=== PATIENT | male | born 1935 | race Caucasian/White ===

== ENCOUNTER 2016-11-10 08:30 | Outpatient (RCR) | payer MEDICARE, BC | END 2016-11-16 15:32 | disposition home or self-care (01) | LOC: OT 08:30 | DX: M19.042 Primary osteoarthritis, left hand (principal); M19.041 Primary osteoarthritis, right hand ==

== ENCOUNTER 2016-11-26 06:37 | Emergency (ER) | payer MEDICARE, BC ==
[~2016-11-26] VITALS: Ht 177.8 cm; Wt 76.8 kg
[2016-11-26] MEDS ORDERED: DUTASTERIDE0.5 MG PO (06:49)
[2016-11-26] MEDS ORDERED: FLOMAX 0.40.4 MG/CAP (06:49)
[2016-11-26] MEDS ORDERED: PROTONIX TR40 M1 PO (11:40)
[2016-11-26 11:50] VITALS: BP 129/87
== END 2016-11-26 11:47 | disposition home or self-care (01) ==
LOC: ED 06:37
DX: K21.9 Gastro-esophageal reflux disease without esophagitis (principal); K44.9 Diaphragmatic hernia without obstruction or gangrene; R07.9 Chest pain, unspecified; R13.10 Dysphagia, unspecified
CPT/HCPCS: Q9967

== ENCOUNTER 2017-01-11 13:11 | Emergency (ER) | payer MEDICARE, BC ==
[~2017-01-11] VITALS: Ht 177.8 cm; Wt 90.9 kg
[~2017-01-11 13:11] MED LIST: DUTASTERIDE0.5 MG PO; FLOMAX 0.40.4 MG/CAP; PROTONIX TR40 M1 PO
[2017-01-11] MEDS ORDERED: LEVO-T200 MCG PO (13:28)
[2017-01-11 17:11] VITALS: BP 139/89
== END 2017-01-11 16:50 | disposition home or self-care (01) ==
LOC: ED 13:11
DX: R07.0 Pain in throat (principal); R09.89 Other specified symptoms and signs involving the circulatory and respiratory systems
CPT/HCPCS: J1610; Q9967

== ENCOUNTER 2017-03-04 09:30 | Outpatient (RCR) | payer MEDICARE, BC ==
[~2017-03-04 09:30] MED LIST changes: +LEVO-T200 MCG PO
== END 2017-03-04 10:30 | disposition home or self-care (01) ==
LOC: PT 09:30
DX: M25.512 Pain in left shoulder (principal); M19.012 Primary osteoarthritis, left shoulder

== ENCOUNTER 2017-08-02 09:30 | Outpatient (RCR) | payer MEDICARE, BC | END 2017-08-02 10:00 | disposition home or self-care (01) | LOC: PT 09:30 | DX: Z47.1 Aftercare following joint replacement surgery (principal); Z96.612 Presence of left artificial shoulder joint | CPT/HCPCS: G8985-GP ==

== ENCOUNTER 2019-02-06 15:48 | Outpatient (RCR) | payer MEDICARE, BC ==
[2019-02-01 16:30] VITALS: BP 140/73
[2019-02-02 16:05] VITALS: BP 134/81
[2019-02-03 16:06] VITALS: BP 154/84
[2019-02-04 15:57] VITALS: BP 158/98
[2019-02-05 15:46] VITALS: BP 152/88
[~2019-02-06] VITALS: Ht 175.3 cm; Wt 99.1 kg
[2019-02-06 16:09] VITALS: BP 158/73
[2019-02-18] MEDS ORDERED: CUBICIN 500MG500 MG IV (11:15)
== END 2019-05-02 | disposition still patient (30) ==
LOC: AMSURD
DX: T84.50XA Infection and inflammatory reaction due to unspecified internal joint prosthesis, initial encounter (principal)
CPT/HCPCS: J0878

== ENCOUNTER → 2019-02-06 | Outpatient (CLI) | payer MEDICARE, BC ==
[2019-02-05 15:46] VITALS: BP 152/88
[~2019-02-06] MED LIST changes: +AMOXICILLIN 50500 MG PO; +ASPIRIN 81M81 MG/TA2 PO; -FLOMAX 0.40.4 MG/CAP; +FLOMAX0.4 MG PO; +GOOD NEIGHBOR500 M2 PO; +SYNTHROID0.2 MG PO; +TRAMADOL 50 MG TAB PO
[2019-02-06 16:39] LABS: ALBUMIN 3.6 g/dL (3.4-4.8); HEMATOCRIT 34.1 % (42.0-52.0); HEMOGLOBIN 10.9 g/dL (13.5-18.0); MEAN PLATELET VOLUME 8.9 fl (7.4-10.4); POTASSIUM 3.9 mmol/L (3.5-5.1); RED BLOOD COUNT 3.48 M/mm3 (4.20-5.60); RED CELL DISTRIBUTION WIDTH 12.9 % (11.5-14.5); WHITE BLOOD COUNT 8.1 K/mm3 (4.8-10.8)
[2019-02-06 16:40] LABS: CALCIUM 8.9 mg/dL (8.3-10.5)
[2019-02-06 16:44] LABS: TOTAL BILIRUBIN 0.5 mg/dL (0.2-1.2)
== END ==
LOC: AMSURD 15:55
PROVIDERS: Family Medicine
DX: T84.50XA Infection and inflammatory reaction due to unspecified internal joint prosthesis, initial encounter (principal)

== ENCOUNTER → 2019-02-20 | Outpatient (CLI) | payer MEDICARE, BC ==
[2019-02-19 15:18] VITALS: BP 173/78
[~2019-02-20] MED LIST changes: +CUBICIN 500MG500 MG IV
[2019-02-20 15:59] LABS: HEMATOCRIT 29.6 % (42.0-52.0); HEMOGLOBIN 9.2 g/dL (13.5-18.0); MEAN PLATELET VOLUME 8.5 fl (7.4-10.4); RED BLOOD COUNT 3.06 M/mm3 (4.20-5.60); RED CELL DISTRIBUTION WIDTH 12.8 % (11.5-14.5); WHITE BLOOD COUNT 6.2 K/mm3 (4.8-10.8)
[2019-02-20 16:00] LABS: ALBUMIN 3.7 g/dL (3.4-4.8)
[2019-02-20 16:01] LABS: POTASSIUM 4.1 mmol/L (3.5-5.1)
[2019-02-20 16:02] LABS: CALCIUM 9.3 mg/dL (8.3-10.5)
[2019-02-20 16:03] LABS: TOTAL PROTEIN 6.9 g/dL (6.2-8.1)
[2019-02-20 16:05] LABS: TOTAL BILIRUBIN 0.5 mg/dL (0.2-1.2)
== END ==
LOC: LAB 15:13
PROVIDERS: Family Medicine
DX: T84.7XXA Infection and inflammatory reaction due to other internal orthopedic prosthetic devices, implants and grafts, initial encounter (principal)

== ENCOUNTER → 2019-02-27 | Outpatient (CLI) | payer MEDICARE, BC ==
[2019-02-26 15:20] VITALS: BP 125/62
[2019-02-27 15:31] LABS: HEMATOCRIT 30.8 % (42.0-52.0); HEMOGLOBIN 9.4 g/dL (13.5-18.0); MEAN PLATELET VOLUME 8.6 fl (7.4-10.4); RED BLOOD COUNT 3.25 M/mm3 (4.20-5.60); RED CELL DISTRIBUTION WIDTH 12.5 % (11.5-14.5); WHITE BLOOD COUNT 8.3 K/mm3 (4.8-10.8)
[2019-02-27 15:33] LABS: ALBUMIN 3.7 g/dL (3.4-4.8); POTASSIUM 3.9 mmol/L (3.5-5.1)
[2019-02-27 15:34] LABS: CALCIUM 9.2 mg/dL (8.3-10.5)
[2019-02-27 15:36] LABS: TOTAL PROTEIN 7.6 g/dL (6.2-8.1)
[2019-02-27 15:37] LABS: TOTAL BILIRUBIN 0.4 mg/dL (0.2-1.2)
== END ==
LOC: LAB 14:57
PROVIDERS: Family Medicine
DX: T84.7XXA Infection and inflammatory reaction due to other internal orthopedic prosthetic devices, implants and grafts, initial encounter (principal)

== ENCOUNTER → 2019-03-06 | Outpatient (CLI) | payer MEDICARE, BC ==
[2019-03-05 15:28] VITALS: BP 152/77
[2019-03-06 15:57] LABS: HEMATOCRIT 31.3 % (42.0-52.0); HEMOGLOBIN 9.7 g/dL (13.5-18.0); MEAN CELL VOLUME 93 fl (78-100); MEAN CORPUSCULAR HEMOGLOBIN 29 pg (27-31); MEAN CORPUSCULAR HGB CONC 31 g/dL (33-37); MEAN PLATELET VOLUME 8.4 fl (7.4-10.4); PLATELET COUNT 384 K/mm3 (130-400); RED BLOOD COUNT 3.38 M/mm3 (4.20-5.60); RED CELL DISTRIBUTION WIDTH 12.5 % (11.5-14.5); WHITE BLOOD COUNT 6.8 K/mm3 (4.8-10.8)
[2019-03-06 16:00] LABS: ALBUMIN 3.7 g/dL (3.4-4.8); POTASSIUM 3.9 mmol/L (3.5-5.1)
[2019-03-06 16:02] LABS: CALCIUM 9.2 mg/dL (8.3-10.5)
[2019-03-06 16:03] LABS: TOTAL PROTEIN 7.5 g/dL (6.2-8.1)
[2019-03-06 16:05] LABS: TOTAL BILIRUBIN 0.4 mg/dL (0.2-1.2)
[2019-03-06 17:33] LABS: LYMPHOCYTE 17 % (20-51); MONOCYTE 15 % (3-10); NEUTROPHILS 62 % (42-75)
== END ==
LOC: LAB 15:18
PROVIDERS: Internal Medicine Infectious Disease
DX: T84.7XXA Infection and inflammatory reaction due to other internal orthopedic prosthetic devices, implants and grafts, initial encounter (principal)

== ENCOUNTER → 2019-03-13 | Outpatient (CLI) | payer MEDICARE, BC ==
[2019-03-12 15:21] VITALS: BP 179/83
[2019-03-13 16:08] LABS: HEMATOCRIT 31.6 % (42.0-52.0); HEMOGLOBIN 9.7 g/dL (13.5-18.0); MEAN PLATELET VOLUME 8.9 fl (7.4-10.4); RED BLOOD COUNT 3.48 M/mm3 (4.20-5.60); RED CELL DISTRIBUTION WIDTH 12.4 % (11.5-14.5)
[2019-03-13 16:14] LABS: ALBUMIN 3.7 g/dL (3.4-4.8); POTASSIUM 4.2 mmol/L (3.5-5.1)
[2019-03-13 16:15] LABS: CALCIUM 9.3 mg/dL (8.3-10.5)
[2019-03-13 16:17] LABS: TOTAL PROTEIN 7.6 g/dL (6.2-8.1)
[2019-03-13 16:18] LABS: TOTAL BILIRUBIN 0.4 mg/dL (0.2-1.2)
== END ==
LOC: LAB 15:19
PROVIDERS: Internal Medicine Infectious Disease
DX: T84.7XXA Infection and inflammatory reaction due to other internal orthopedic prosthetic devices, implants and grafts, initial encounter (principal)

== ENCOUNTER → 2019-03-20 | Outpatient (CLI) | payer MEDICARE, BC ==
[2019-03-19 15:20] VITALS: BP 158/87
[2019-03-20 15:40] LABS: BASO # 0.1 (0.02-0.10); EOS # 0.3 (0.04-0.40); EOS % 3.4 % (0.0-4.0); HEMATOCRIT 32.5 % (42.0-52.0); LYMPH# 1.4 (1.50-4.00); MEAN CELL VOLUME 89 fl (78-100); MEAN CORPUSCULAR HEMOGLOBIN 27 pg (27-31); MEAN CORPUSCULAR HGB CONC 31 g/dL (33-37); MEAN PLATELET VOLUME 8.6 fl (7.4-10.4); MONO # 0.9 (0.20-0.80); NEU # 5.1 (1.40-6.50); PLATELET COUNT 355 K/mm3 (130-400); RED BLOOD COUNT 3.66 M/mm3 (4.20-5.60); RED CELL DISTRIBUTION WIDTH 12.7 % (11.5-14.5); WHITE BLOOD COUNT 7.7 K/mm3 (4.8-10.8)
[2019-03-20 16:01] LABS: ALBUMIN 3.9 g/dL (3.4-4.8); POTASSIUM 4.1 mmol/L (3.5-5.1)
[2019-03-20 16:02] LABS: CALCIUM 9.3 mg/dL (8.3-10.5)
[2019-03-20 16:04] LABS: TOTAL PROTEIN 7.6 g/dL (6.2-8.1)
[2019-03-20 16:05] LABS: TOTAL BILIRUBIN 0.5 mg/dL (0.2-1.2)
== END ==
LOC: LAB 15:12
PROVIDERS: Nurse Practitioner Primary Care
DX: T84.50XA Infection and inflammatory reaction due to unspecified internal joint prosthesis, initial encounter (principal); T84.7XXA Infection and inflammatory reaction due to other internal orthopedic prosthetic devices, implants and grafts, initial encounter

== ENCOUNTER 2019-03-22 15:00 | Outpatient (RCR) | payer MEDICARE, BC ==
[2019-02-18 11:11] VITALS: BP 170/106
[2019-02-19 15:18] VITALS: BP 173/78
[2019-02-20 15:28] VITALS: BP 148/76
[2019-02-21 15:44] VITALS: BP 162/78
[2019-02-22 15:24] VITALS: BP 156/77
[2019-02-23 15:54] VITALS: BP 137/72
[2019-02-24 15:29] VITALS: BP 138/72
[2019-02-25 15:00] VITALS: BP 152/77
[2019-02-26 15:20] VITALS: BP 125/62
[2019-02-27 15:18] VITALS: BP 123/76
[2019-02-28 15:43] VITALS: BP 160/87
[2019-03-01 15:28] VITALS: BP 150/73
[2019-03-02 15:20] VITALS: BP 146/70
[2019-03-03 15:41] VITALS: BP 133/78
[2019-03-04 15:44] VITALS: BP 164/70
[2019-03-05 15:28] VITALS: BP 152/77
[2019-03-06 15:36] VITALS: BP 159/71
[2019-03-07 15:45] VITALS: BP 138/76
[2019-03-08 15:52] VITALS: BP 146/67
[2019-03-09 16:47] VITALS: BP 172/92
[2019-03-10 15:20] VITALS: BP 153/90
[2019-03-11 15:21] VITALS: BP 152/79
[2019-03-11 15:52] VITALS: BP 145/72
[2019-03-12 15:21] VITALS: BP 179/83
[2019-03-13 15:19] VITALS: BP 145/80
[2019-03-14 15:15] VITALS: BP 158/95
[2019-03-15 15:35] VITALS: BP 141/75
[2019-03-15 15:52] VITALS: BP 141/75
[2019-03-16 15:24] VITALS: BP 168/80
[2019-03-17 15:26] VITALS: BP 154/83
[2019-03-17 15:40] VITALS: BP 154/83
[2019-03-18 15:18] VITALS: BP 159/88
[2019-03-19 15:20] VITALS: BP 158/87
[2019-03-20 15:43] VITALS: BP 142/77
[2019-03-21 15:31] VITALS: BP 113/55
[~2019-03-22] VITALS: Ht 175.3 cm; Wt 97.7 kg
[2019-03-22 15:12] VITALS: BP 152/98
== END 2019-03-22 18:00 | disposition home or self-care (01) ==
LOC: AMSURD 15:00
DX: T84.7XXA Infection and inflammatory reaction due to other internal orthopedic prosthetic devices, implants and grafts, initial encounter (principal)
CPT/HCPCS: J0878

== ENCOUNTER 2021-10-16 10:24 | Emergency (ER) | payer MEDICARE, BC ==
[~2021-10-16] VITALS: Ht 177.8 cm; Wt 97.7 kg
[2021-10-16 11:07] VITALS: BP 178/88
== END 2021-10-16 11:07 | disposition home or self-care (01) ==
LOC: ED 10:24
DX: S09.90XA Unspecified injury of head, initial encounter (principal); S01.01XA Laceration without foreign body of scalp, initial encounter; Z91.040 Latex allergy status; W26.8XXA Contact with other sharp object(s), not elsewhere classified, initial encounter
CPT/HCPCS: 90715

== ENCOUNTER → 2023-12-14 | Outpatient (CLI) | payer MEDICARE, BC | LOC: RAD 16:15 | DX: M50.321 Other cervical disc degeneration at C4-C5 level (principal); M50.322 Other cervical disc degeneration at C5-C6 level ==

== ENCOUNTER 2024-01-21 15:25 | Emergency (ER) | payer MEDICARE, BC ==
[~2024-01-21] VITALS: Ht 177.8 cm; Wt 96.4 kg
[2024-01-21 15:38] VITALS: BP 98/56
[2024-01-21 15:58] LABS: BASO # 0.04 K/mm3 (0.02-0.10); EOS # 0.14 K/mm3 (0.04-0.40); EOS % 1.6 % (0.0-4.0); HEMATOCRIT 30.7 % (42.0-52.0); HEMOGLOBIN 10.3 g/dL (13.5-18.0); LYMPH# 0.66 K/mm3 (1.50-4.00); MEAN CELL VOLUME 91 fl (78-100); MEAN CORPUSCULAR HEMOGLOBIN 31 pg (27-31); MEAN CORPUSCULAR HGB CONC 34 g/dL (33-37); MEAN PLATELET VOLUME 9.2 fl (7.4-10.4); MONO # 1.05 K/mm3 (0.20-0.80); NEU # 7.08 K/mm3 (1.40-6.50); PLATELET COUNT 226 K/mm3 (130-400); RED BLOOD COUNT 3.37 M/mm3 (4.20-5.60); RED CELL DISTRIBUTION WIDTH 12.7 % (11.5-14.5)
[2024-01-21 16:06] LABS: ALBUMIN 3.6 g/dL (3.4-4.8)
[2024-01-21 16:07] LABS: CALCIUM 8.7 mg/dL (8.3-10.5)
[2024-01-21 16:09] LABS: TOTAL PROTEIN 7.2 g/dL (6.2-8.1)
[2024-01-21 16:10] LABS: TOTAL BILIRUBIN 0.6 mg/dL (0.2-1.2)
[2024-01-21 17:46] LABS: PH-URINE 5.5 (5.0 - 8.0); URINE APPEARANCE CLOUDY (CLEAR); URINE COLOR YELLOW (YELLOW); URINE PROTEIN(semi-quant) 1+ (NEGATIVE)
[2024-01-21 17:47] LABS: URINE BILIRUBIN NEGATIVE (NEGATIVE); URINE BLOOD 3+ (NEGATIVE); URINE GLUCOSE NEGATIVE (NEGATIVE); URINE KETONE NEGATIVE (NEGATIVE); URINE LEUKOCYTE ESTERASE 2+ (NEGATIVE); URINE NITRATE POSITIVE (NEGATIVE)
[2024-01-21 17:53] LABS: URINE WBC >50 /hpf (0-3)
[2024-01-21] MEDS ORDERED: cefTRIAXone 1 G in Water For Injection,Sterile 10 ML IV ONE (18:15)
[2024-01-21] MEDS ORDERED: NEURONTIN300 MG/CAP PO (19:40)
[2024-01-22] MEDS ORDERED: Dutasteride 0.5 MG CAP PO SCH (09:00)
== END 2024-01-21 20:45 | disposition other institution (70) ==
LOC: ED 15:25
PROVIDERS: Family Medicine
DX: N17.9 Acute kidney failure, unspecified (principal); E87.1 Hypo-osmolality and hyponatremia; R03.1 Nonspecific low blood-pressure reading; N39.0 Urinary tract infection, site not specified; Z91.040 Latex allergy status
CPT/HCPCS: J0696; J7120

== ENCOUNTER 2024-01-21 19:19 | Inpatient (IN) | payer MEDICARE, BC ==
[~2024-01-21] VITALS: Ht 177.8 cm; Wt 92.4 kg
--- NOTE | 2024-01-21 19:19 | NUR ---
Patient to room 208 via wheelchair at 2029 with DX of UTI, DAXA, and low bp. Denies pain at this time. Is alert and oriented x4. Oriented to room and call light. Max 2 assist to pivot transfer to bed and rest back in bed. SCD's reviewed and applied. Tele applied at 2044. Has upper denture and assisted to remove and wears glasses. Denies being [place]. See admission assessment. Green draining hazy yellow urine. Report was received earlier from Aida FLORES.
[2024-01-21] MEDS ORDERED: Acetaminophen 325 MG TAB PO PRN (19:30)
[2024-01-21] MEDS ORDERED: Ondansetron 4 MG/2 ML VIAL IV PRN (19:30)
[2024-01-21] MEDS ORDERED: Polyethylene Glycol 3350 Powder 17 GM PACKET PO PRN (19:30)
[2024-01-21] MEDS ORDERED: NEURONTIN300 MG/CAP PO (19:40)
[2024-01-21] MEDS ORDERED: Triamcinolone 0.1% Cream 15 GM TUBE TP PRN (20:00)
[2024-01-21] MEDS ORDERED: NS 1,000 ML IV SCH (20:15)
[2024-01-21] MEDS ORDERED: Gabapentin 300 MG CAP PO SCH (21:00)
--- NOTE | 2024-01-21 21:25 | NUR ---
Patient had bought of nausea. Small amount frothy white emesis. Zofran given SIV. Allowed med to take effect then swallows pills whole all at once. Does chew somewhat on meds. Tylenol given per request to aid with sleep/relaxation. Lovenox was reviewed and given. Travis hose removed for the night. IVF's infuse at 75mls per hour through IV RAC.
[2024-01-21 21:50] VITALS: BP 125/74
[2024-01-22 01:57] VITALS: BP 103/62
--- NOTE | 2024-01-22 05:25 | NUR ---
Patients bedding and gown wet with perspiration and changed. Patient repositioned up in bed and to right side. Reports he slept well this noc.
[2024-01-22 06:07] VITALS: BP 119/66
[2024-01-22 07:14] LABS: BASO # 0.05 K/mm3 (0.02-0.10); EOS # 0.07 K/mm3 (0.04-0.40); EOS % 0.7 % (0.0-4.0); HEMATOCRIT 31.7 % (42.0-52.0); HEMOGLOBIN 10.7 g/dL (13.5-18.0); LYMPH# 0.83 K/mm3 (1.50-4.00); MEAN CELL VOLUME 92 fl (78-100); MEAN CORPUSCULAR HEMOGLOBIN 31 pg (27-31); MEAN CORPUSCULAR HGB CONC 34 g/dL (33-37); MONO # 1.11 K/mm3 (0.20-0.80); PLATELET COUNT 199 K/mm3 (130-400); RED BLOOD COUNT 3.45 M/mm3 (4.20-5.60); RED CELL DISTRIBUTION WIDTH 12.7 % (11.5-14.5); WHITE BLOOD COUNT 9.9 K/mm3 (4.8-10.8)
[2024-01-22 07:22] LABS: ALBUMIN 3.5 g/dL (3.4-4.8)
[2024-01-22 07:25] LABS: TOTAL PROTEIN 7.1 g/dL (6.2-8.1)
[2024-01-22 07:27] LABS: TOTAL BILIRUBIN 0.6 mg/dL (0.2-1.2)
--- NOTE | 2024-01-22 08:45 | NUR ---
Resting in bed. 2:1 assist boosting and repositioning in bed. Declined to sit in chair at this time. A&Ox4, RA, no c/o pain or discomfort. Reports he slept well last night since admission to floor. Swallowed pills whole with water. Assisted with placing pills in mouth and holding the straw from the water cup. Tolerated it well. Bed in lowest and locked position. Call light within reach.
[2024-01-22] MEDS ORDERED: Dutasteride 0.5 MG CAP PO SCH (09:00)
[2024-01-22 10:00] VITALS: BP 108/56
[2024-01-22] MEDS ORDERED: cefTRIAXone 1 G in Water For Injection,Sterile 10 ML IV SCH (10:15)
[2024-01-22 14:00] VITALS: BP 110/64
[2024-01-22 18:12] VITALS: BP 136/60
--- NOTE | 2024-01-22 20:00 | NUR ---
TEACHER PRIVATE into patients room and noted IV out, no active bleeding RAC. Per Dr. Contreras DC IVF's and IV and will start patient on po antibiotics. Patient alert and oriented x4. Denies pain.
[2024-01-22 21:29] VITALS: BP 104/57
[2024-01-23 02:21] VITALS: BP 123/70
[2024-01-23 05:48] VITALS: BP 150/71
--- NOTE | 2024-01-23 05:52 | NUR ---
Patient has been resting with eyes closed. Awakened for am meds and vitals. Denies needs.
[2024-01-23 07:56] LABS: TROPONIN-I 0.399 ng/mL (0.00-0.033)
--- NOTE | 2024-01-23 08:30 | NUR ---
Pt Ox4, denies pain, VSS. Most recent BP 150/71, HR 91, afebrile. Continues on telemetry SR-ST. Home BP meds continue to be held. AM labs resulted, Trop and Creat trending down. Pt able to transfer this AM with 1A/walker. Pt anticipating return to [facility] today. Son at bedside, will transport pt upon discharge.
[2024-01-23 10:25] VITALS: BP 159/77
[2024-01-23] MEDS ORDERED: TRIAMCINOLONE AC0.13 TP (10:51)
[2024-01-23] MEDS ORDERED: CEFDINIR300 MG PO (10:52)
[2024-01-23] MEDS ORDERED: COREG 6.256.25 MG/TA PO (11:35)
[2024-01-23] MEDS ORDERED: COZAAR25 M1 PO (11:37)
[2024-01-23 11:43] VITALS: BP 159/77
--- NOTE | 2024-01-23 12:12 | NUR ---
Pt discharge back to [facility] in [place]. Discharge discussed with pt and son. Instructed to resume all regular home meds. Assist pt into WC. Escort from facility. Transport via POV with son. Report to SANDRA Coppola. Discharge packet and leg bag sent with pt.
== END 2024-01-23 12:12 | DRG 690 ==
LOC: MED/SURG 19:19
PROVIDERS: Family Medicine; ADMIT Family Medicine
DX: N39.0 Urinary tract infection, site not specified (principal); N17.9 Acute kidney failure, unspecified; E87.1 Hypo-osmolality and hyponatremia; E03.9 Hypothyroidism, unspecified; K21.9 Gastro-esophageal reflux disease without esophagitis; N40.0 Benign prostatic hyperplasia without lower urinary tract symptoms; N47.1 Phimosis; M19.90 Unspecified osteoarthritis, unspecified site; Z96.643 Presence of artificial hip joint, bilateral; Z96.653 Presence of artificial knee joint, bilateral; Z79.82 Long term (current) use of aspirin; Z79.890 Hormone replacement therapy; Z88.5 Allergy status to narcotic agent
CPT/HCPCS: J0696; J1650; J2405; J7030

== ENCOUNTER → 2024-05-01 | Outpatient (CLI) | payer MEDICARE, BC ==
[~2024-05-01] MED LIST changes: +CEFDINIR300 MG PO; +COREG 6.256.25 MG/TA PO; +COZAAR25 M1 PO; +NEURONTIN300 MG/CAP PO; +TRIAMCINOLONE AC0.13 TP
== END ==
LOC: LAB 16:10
DX: Z96.0 Presence of urogenital implants (principal)